=== PATIENT | male | born 1990 | race Caucasian/White ===

== ENCOUNTER 2018-12-06 19:26 | Emergency (ER) | payer OTHER ==
[2018-12-06 19:46] VITALS: RESP 18
--- NOTE | 2018-12-06 20:38 | XR ---
EXAMINATION TYPE: XR hand complete LT DATE OF EXAM: 12/06/2018 COMPARISON: NONE HISTORY: Football injury. Pain. TECHNIQUE: 3 views FINDINGS: There is posterior dislocation of the PIP joint of the little finger. There is probably a 4 x 1 mm chip fracture of the base of the middle phalanx. IMPRESSION: Posterior dislocation of the little finger.
--- NOTE | 2018-12-06 21:15 | XR ---
EXAMINATION TYPE: XR finger LT DATE OF EXAM: 12/06/2018 COMPARISON: NONE HISTORY: Post reduction TECHNIQUE: 2 views FINDINGS: There is anatomic reduction of the PIP joint of the little finger left hand. I see no displ aced fracture. IMPRESSION: Anatomic reduction. No displaced fracture seen. Soft tissue swelling around the PIP joint .
--- NOTE | 2018-12-06 21:24 | ED ---
General Adult HPI - General Chief complaint: Extremity Injury, Upper Stated complaint: Finger injury Time Seen by Provider: 12/06/18 20:34 Source: patient, RN notes reviewed, old records reviewed Mode of arrival: ambulatory Limitations: no limitations - History of Present Illness Initial comments: 28-year-old male patient since ED chief complaint of left pinky finger pain. Patient reports that he was playing football when he ran into another individual and felt pain in his left pinky finger. Patient denies any other complaints at this time. Patient denies any other trauma. Systemic: Pt denies fatigue, fever/chills, rash. Pt denies weakness, night sweats, weight loss. Neuro: Pt denies headache, visual disturbances, syncope or pre-syncope. HEENT: Pt denies ocular discharge or irritation, otalgia, rhinorrhea, pharyngitis or notable lymphadenopathy. Cardiopulmonary: Pt denies chest pain, SOB, heart palpitations, dyspnea on exertion. Abdominal/GI: Pt denies abdominal pain, n/v/d. : Pt denies dysuria, burning w/ urination, frequency/urgency. Denies new onset urinary or bowel incontinence. MSK: Pt denies loss of strength or function in extremities. Neuro: Pt denies new onset weakness, paresthesias. - Related Data Allergies Allergy/AdvReac Type Severity Reaction Status Date / Time No Known Allergies Allergy Verified 12/06/18 19:46 Review of Systems ROS Statement: Those systems with pertinent positive or pertinent negative responses have been documented in the HPI. ROS Other: All systems not noted in ROS Statement are negative. Past Medical History Past Medical History: No Reported History History of Any Multi-Drug Resistant Organisms: None Reported Past Surgical History: No Surgical Hx Reported Past Psychological History: Anxiety, Bipolar Smoking Status: Current every day smoker Past Alcohol Use History: Occasional Past Drug Use History: Marijuana General Exam - General Exam Comments Initial Comments: Constitutional: NAD, AOX3, Pt has pleasant affect. HEENT: NC/AT, trachea midline, neck supple, no lymphadenopathy. Posterior pharynx non erythematous, without exudates. External ears appear normal, without discharge. Mucous membranes moist. Eyes PERRLA, EOM intact. There is no scleral icterus. No pallor noted. Cardiopulmonary: RRR, no murmurs, rubs or gallops, no JVD noted. Lungs CTAB in anterior and posterior saha. No peripheral edema. Abdominal exam: Abdomen soft and non-distended. Abdomen non-tender to palpation in all 4 quadrants. Bowel sounds active in LLQ. No hepatosplenomegaly. No ecchymosis Neuro: CN II-XII grossly intact. No nuchal rigidity. No raccon eyes, no fragoso sign, no hemotympanum. No cervical spinal tenderness. MSK: Left pinky finger consistent with posterior dislocation of the PIP joint. And otherwise nontender to palpation. Radial pulse +2, capillry refill less than 2 seconds. Dislocation reduced. No posterior calf tenderness bilaterally, homans sign negative bilaterally. Posterior tibialis and radial pulse +2 bilaterally. Sensation intact in upper and lower extremities. Full active ROM in upper and lower extremities, 5/5 stregnth. Limitations: no limitations Course Vital Signs 12/06/18 19:43 Temperature 97.4 F L Pulse Rate 105 H Respiratory 18 Rate Blood Pressure 130/74 O2 Sat by Pulse 99 Oximetry Medical Decision Making - Medical Decision Making 28-year-old male patient since ED chief complaint of left pinky finger pain. Patient reports that he was playing football when he ran into another individual and felt pain in his left pinky finger. Patient denies any other complaints at this time. Patient denies any other trauma. Pt VSS, afebrile. Physical exam displayed: Left pinky finger consistent with posterior dislocation of the PIP joint. And otherwise nontender to palpation. Radial pulse +2, capillry refill less than 2 seconds. Dislocation reduced. Plain film of hand displayed posterior dislocation little finger, possible chip fracture at the base of the middle phalanx of pinky of left hand. Repeat x-ray displayed anatomic reduction. Patient placed a straight finger splint. Discharged with orthopedic follow up tomorrow. Case discussed with Dr. Westfall. Disposition Clinical Impression: Finger dislocation Disposition: HOME SELF-CARE Condition: Stable Instructions (If sedation given, give patient instructions): Finger Dislocation (ED) Additional Instructions: Patient to adhere to previously discussed treatment plan and will take medication(s) as directed. Patient to follow up with PCP in 1-2 days. Patient to return to ED if symptoms do not improve. Continue to wear straight finger splint. Follow up with orthopedic consult tomorrow. Return to ER if condition worsens. Is patient prescribed a controlled substance at d/c from ED?: No Referrals: Stephen Oliveros MD [Primary Care Provider] - 1-2 days Jimbo Cano DO [Medical Doctor] - 1-2 days
[2018-12-06 21:45] VITALS: BP 114/61; PULSE 93; TEMP 98.6
== END 2018-12-06 21:43 | disposition home or self-care (01) ==
LOC: EC 19:26
DX: S63.287A Dislocation of proximal interphalangeal joint of left little finger, initial encounter (principal); F17.200 Nicotine dependence, unspecified, uncomplicated; W50.0XXA Accidental hit or strike by another person, initial encounter; Y93.61 Activity, american tackle football; Y92.89 Other specified places as the place of occurrence of the external cause
CPT/HCPCS: 26770; 99284

== ENCOUNTER 2019-05-15 19:05 | Emergency (ER) | payer OTHER ==
[2019-05-15] MEDS ORDERED: KETOROLAC 60 MG/2 ML VIAL IM STA (19:53)
--- NOTE | 2019-05-15 20:05 | XR ---
EXAMINATION TYPE: XR foot complete LT DATE OF EXAM: 05/15/2019 COMPARISON: NONE HISTORY: Pain TECHNIQUE: 3 views FINDINGS: Metatarsals are intact. I see no fracture nor dislocation. There are no erosions. IMPRESSION: Negative left foot exam.
--- NOTE | 2019-05-15 20:12 | ED ---
General Adult HPI - General Chief complaint: Extremity Injury, Lower Stated complaint: left foot pain Time Seen by Provider: 05/15/19 19:28 Source: patient, RN notes reviewed, old records reviewed Mode of arrival: ambulatory Limitations: no limitations - History of Present Illness Initial comments: Patient is a 28-year-old male who presents for his pharmacy for evaluation for left great toe pain. Patient reports he woke up with symptoms this morning and has been having pain for the past 18 hours. He Tylenol for pain relief. Patient reports that he was found to have a low-grade temperature upon arrival. Patient states that a minor cough but he has history of smoking. Patient states that he has had some redness streaking up the dorsum of his foot from the great toe. He denies any history of gout. Denies any history of blood clots. Denies any calf discomfort. - Related Data Previous Rx's Medication Instructions Recorded Cephalexin [Keflex] 500 mg PO Q8HR #21 cap 05/15/19 Ibuprofen 600 mg PO Q6H #30 tab 05/15/19 Allergies Allergy/AdvReac Type Severity Reaction Status Date / Time No Known Allergies Allergy Verified 05/15/19 19:19 Review of Systems ROS Statement: Those systems with pertinent positive or pertinent negative responses have been documented in the HPI. ROS Other: All systems not noted in ROS Statement are negative. Past Medical History Past Medical History: No Reported History History of Any Multi-Drug Resistant Organisms: None Reported Past Surgical History: No Surgical Hx Reported Additional Past Surgical History / Comment(s): fatty tumor to shoulder Past Psychological History: Anxiety, Bipolar Smoking Status: Current every day smoker Past Alcohol Use History: Occasional Past Drug Use History: Marijuana General Exam Limitations: no limitations General appearance: alert, in no apparent distress Head exam: Present: atraumatic, normocephalic, normal inspection Eye exam: Present: normal appearance, PERRL, EOMI. Absent: scleral icterus, conjunctival injection, periorbital swelling ENT exam: Present: normal exam, mucous membranes moist Neck exam: Present: normal inspection. Absent: tenderness, meningismus, lymphadenopathy Respiratory exam: Present: normal lung sounds bilaterally. Absent: respiratory distress, wheezes, rales, rhonchi, stridor Cardiovascular Exam: Present: regular rate, normal rhythm, normal heart sounds. Absent: systolic murmur, diastolic murmur, rubs, gallop, clicks GI/Abdominal exam: Present: soft, normal bowel sounds. Absent: distended, tenderness, guarding, rebound, rigid Extremities exam: Present: normal inspection, full ROM, normal capillary refill, other (Patient has evidence of a erythematous streaking over the dorsum of the left great toe swelling and foot. ). Absent: tenderness, pedal edema, joint swelling, calf tenderness Back exam: Present: normal inspection Neurological exam: Present: alert Psychiatric exam: Present: normal affect, normal mood Skin exam: Present: warm, dry, intact, normal color. Absent: rash Course Vital Signs 05/15/19 19:14 Temperature 100.1 F H Pulse Rate 104 H Respiratory 20 Rate Blood Pressure 126/69 O2 Sat by Pulse 96 Oximetry Medical Decision Making - Medical Decision Making 28-year-old man sent in today for left great toe pain. Patient reports he woke up with some erythema to the toe with some evidence of lymphangitic streaking. Patient also had a low-grade temperature. No breaks the skin these aware of. Patient at this time it is of some pain with range of motion of the toe. Discussed patient's symptoms are concerning for possible gout versus infection. X-ray of the toe shows no acute changes. He denies any history of gout. No history of blood clots. Denies any calf pain. Discussed at this time treatment for both with Keflex and a temperature medication. He is given IM Toradol. Is also low-grade temperature on recheck it was 98.9. As I rechecked influenza testing but that was negative as well. I discussed return parameters and close PCP follow-up. Given a note for work. - Lab Data Lab Results 05/15/19 Range/Units 19:50 Influenza Type A RNA Not Detected (Not Detectd) Influenza Type B (PCR) Not Detected (Not Detectd) - Radiology Data Radiology results: report reviewed Negative left foot exam. Disposition Clinical Impression: Toe pain Disposition: HOME SELF-CARE Condition: Good Instructions (If sedation given, give patient instructions): Arthralgia (ED) Additional Instructions: Please use medication as discussed. Please follow up with family doctor if symptoms have not improved over the next two days. Please return to the emergency room if your symptoms increase or worsen or for any other concerns. Prescriptions: Ibuprofen 600 mg PO Q6H #30 tab Cephalexin [Keflex] 500 mg PO Q8HR #21 cap Is patient prescribed a controlled substance at d/c from ED?: No Referrals: Stephen Oliveros MD [Primary Care Provider] - 1-2 days Time of Disposition: 20:50
[2019-05-15] MEDS ORDERED: IBUPROFEN 600 MG STARTER PACK 4 TAB BTL PO STA (20:52)
[2019-05-15] MEDS ORDERED: CEPHALEXIN 500MG STARTER PACK 4 CAP BTL PO STA (20:52)
[2019-05-15 21:07] VITALS: BP 128/83; PULSE 74; RESP 18; TEMP 98.6
== END 2019-05-15 21:08 | disposition home or self-care (01) ==
LOC: EC 19:05
DX: M79.675 Pain in left toe(s) (principal); L53.9 Erythematous condition, unspecified; M79.89 Other specified soft tissue disorders; R50.9 Fever, unspecified; F17.200 Nicotine dependence, unspecified, uncomplicated
CPT/HCPCS: 87502; 73630; 99284; 96372; J1885